=== PATIENT | female | born 1950 | race Caucasian/White ===

== ENCOUNTER 2020-01-18 13:47 | Emergency (ER) | payer MEDICARE ==
[~2020-01-18] VITALS: Ht 167.6 cm; Wt 77.0 kg
[2020-01-18 13:50] VITALS: BP 148/63
[2020-01-18] MEDS ORDERED: proparacaine 0.5% ophthalmic drops 15ml EACHEYE ONE (14:15)
[2020-01-18] MEDS ORDERED: ERYT1OIN6 LEFTEYE (14:29)
== END 2020-01-18 14:40 | disposition home or self-care (01) ==
LOC: ER 13:47
DX: T15.02XA Foreign body in cornea, left eye, initial encounter (principal); X58.XXXA Exposure to other specified factors, initial encounter; Y93.89 Activity, other specified; Y92.89 Other specified places as the place of occurrence of the external cause; Y99.9 Unspecified external cause status
CPT/HCPCS: 65222; 99284